=== PATIENT | female | born 1980 | race Caucasian/White ===

== ENCOUNTER 2019-03-31 21:53 | Emergency (ER) | payer OTHER, MEDICAID ==
[~2019-03-31] VITALS: Ht 175.3 cm; Wt 94.8 kg
[2019-03-31 22:24] VITALS: Ht 175.3 cm; Wt 94.8 kg
[2019-03-31 23:24] VITALS: BP 130/83
== END 2019-03-31 23:24 | disposition home or self-care (01) ==
LOC: ED 21:53
DX: L03.116 Cellulitis of left lower limb (principal); J45.909 Unspecified asthma, uncomplicated; Z88.0 Allergy status to penicillin; Z88.1 Allergy status to other antibiotic agents